=== PATIENT | male | born 1960 | race Caucasian/White ===

== ENCOUNTER → 2021-04-17 | Emergency (ER) | payer OTHER ==
[~2021-04-17] VITALS: Ht 185.4 cm; Wt 109.1 kg
[~2021-04-17] MED LIST: HYDR-3965 PO; IBUP-1984 PO
[2021-04-17 10:57] VITALS: BP 157/102
== END | disposition home or self-care (01) ==
LOC: ER 10:14
DX: S20.211A Contusion of right front wall of thorax, initial encounter (principal); Z79.899 Other long term (current) drug therapy; W18.2XXA Fall in (into) shower or empty bathtub, initial encounter; Y93.89 Activity, other specified; Y92.89 Other specified places as the place of occurrence of the external cause; Y99.8 Other external cause status
CPT/HCPCS: 71046; 99283

== ENCOUNTER 2022-05-14 22:31 | Emergency (ER) | payer OTHER ==
[~2022-05-14] VITALS: Ht 185.4 cm; Wt 120.0 kg
--- NOTE | 2022-05-14 22:53 | NUR ---
[facility] IN [facility]
[2022-05-15] MEDS ORDERED: cyclobenzaprine 10mg tablet PO ONE (01:05)
[2022-05-15] MEDS ORDERED: ketorolac tromethamine 15mg/ml inj. IV ONE (01:05)
[2022-05-15] MEDS ORDERED: morphine 4 MG/ML inj SYRINge IV ONE (01:05)
[2022-05-15] MEDS ORDERED: CYCL-1 PO (01:58)
[2022-05-15] MEDS ORDERED: HYDR-3965 PO (01:58)
[2022-05-15 02:21] VITALS: BP 148/114
== END 2022-05-15 02:24 | disposition home or self-care (01) ==
LOC: ER 22:32
DX: M54.32 Sciatica, left side (principal); I10 Essential (primary) hypertension; G89.29 Other chronic pain; M54.50 Low back pain, unspecified; F17.200 Nicotine dependence, unspecified, uncomplicated
CPT/HCPCS: 96374; 99285; J1885

== ENCOUNTER 2022-08-13 16:08 | Emergency (ER) | payer BC ==
[~2022-08-13] VITALS: Ht 185.4 cm; Wt 118.2 kg
[~2022-08-13 16:08] MED LIST changes: +CYCL-1 PO; -HYDR-3965 PO; -IBUP-1984 PO
[2022-08-13] MEDS ORDERED: LIDOcaine 5% patch TP STA (17:39)
[2022-08-13] MEDS ORDERED: ketorolac trometh inj. 60 MG/2 ML VIAL IM ONE (17:40)
[2022-08-13] MEDS ORDERED: HYDROcodone/acetaminophen 5mg/325mg tablet PO ONE (17:40)
[2022-08-13] MEDS ORDERED: HYDR-3965 PO (18:34)
[2022-08-13] MEDS ORDERED: LIDO700A32 TOP (18:34)
[2022-08-13] MEDS ORDERED: NAPR-56 PO (18:34)
[2022-08-13 19:36] VITALS: BP 142/86
== END 2022-08-13 19:37 | disposition home or self-care (01) ==
LOC: ER 16:09
DX: S20.211A Contusion of right front wall of thorax, initial encounter (principal); I10 Essential (primary) hypertension; G89.29 Other chronic pain; M54.50 Low back pain, unspecified; F17.200 Nicotine dependence, unspecified, uncomplicated; W19.XXXA Unspecified fall, initial encounter; Y93.89 Activity, other specified; Y92.89 Other specified places as the place of occurrence of the external cause; Y99.8 Other external cause status
CPT/HCPCS: 71046; 96372; 99283; J1885